=== PATIENT | male | born 1985 | race American Indian/Alaskan Native ===

== ENCOUNTER → 2017-11-04 | Outpatient (CLI) | payer OTHER ==
[~2017-11-04] MED LIST: DIAZ5 PO; DOXE10 PO; DOXE25 PO; HYDACE5 PO; IBUP800 PO; MEDICAL MARIJUANA; MIRT15 PO; MIRT30; OLAN10; OLAN10 PO; OLAN2.5 PO; OLAN5 PO; SERT25; ZIPR60 PO; [UNRECOGNIZED DRUG - REMARK]
[2017-11-04 14:18] LABS: Source, Urine Voided
[2017-11-04 16:49] LABS: Bilirubin, Urine Neg (Neg); Blood, Urine 1+ (Neg); Glucose Qualitative, Urine Neg (Neg); Ketones, Urine Neg (Neg); Leukocyte Esterase, Urine Neg (Neg); Nitrite, Urine Neg (Neg); Protein, Urine Neg (Neg); Urobilinogen, Urine NORM (Normal)
[2017-11-04 17:02] LABS: Appearance, Urine Clear (Clear); Color, Urine Yellow (P-Yellow)
[2017-11-04 17:03] LABS: Bacteria Few /hpf; Squamous Epithelial Cells Few /hpf (Few); White Blood Cells, Urine 0-2 /hpf (0-5)
== END | disposition home or self-care (01) ==
LOC: LAB 14:06
PROVIDERS: Nurse Practitioner Family
DX: R50.9 Fever, unspecified (principal)
CPT/HCPCS: 81001

== ENCOUNTER 2019-02-04 01:05 | Emergency (ER) | payer OTHER ==
[~2019-02-04] VITALS: Ht 175.3 cm; Wt 95.2 kg
== END 2019-02-04 01:24 | disposition home or self-care (01) ==
LOC: ER 01:05
DX: L98.9 Disorder of the skin and subcutaneous tissue, unspecified (principal); Z88.8 Allergy status to other drugs, medicaments and biological substances; Z79.899 Other long term (current) drug therapy; F25.0 Schizoaffective disorder, bipolar type
CPT/HCPCS: 36415; 80053; 80061; 83036; 85025; 99283; G0480

== ENCOUNTER 2019-11-27 12:13 | Emergency (ER) | payer OTHER ==
[~2019-11-27] VITALS: Ht 175.3 cm; Wt 95.2 kg
[2019-11-27] MEDS ORDERED: BENZATROPINE PO (12:34)
[2019-11-27] MEDS ORDERED: ALBU90OI INH (12:36)
[2019-11-27 13:02] LABS: Source, Urine Clean Catch
[2019-11-27 13:06] LABS: BASOPHILS ABSOLUTE AUTO 0.03 K/mm3 (0.00-0.23); BASOPHILS PERCENT AUTO 1 % (0-2); Bilirubin, Urine Neg (Neg); Blood, Urine 1+ (Neg); EOSINOPHILS ABSOLUTE AUTO 0.08 K/mm3 (0.00-0.68); EOSINOPHILS PERCENT AUTO 2 % (0-6); Glucose Qualitative, Urine Neg (Neg); Hemoglobin 17.1 g/dL (13.5-17.5); IMMATURE GRAN ABSOLUTE AUTO 0.01 K/mm3 (0.00-0.10); IMMATURE GRAN PERCENT AUTO 0 % (0-1); Ketones, Urine 3+ (Neg); LYMPHOCYTES ABSOLUTE AUTO 1.92 K/mm3 (0.84-5.20); LYMPHOCYTES PERCENT AUTO 37 % (21-46); Leukocyte Esterase, Urine 1+ (Neg); MONOCYTES ABSOLUTE AUTO 0.43 K/mm3 (0.16-1.47); MONOCYTES PERCENT AUTO 8 % (4-13); Mean Corpuscular HGB 31.9 pg (26.0-34.0); Mean Corpuscular HGB Conc 34.9 g/dL (31.5-36.5); Mean Corpuscular Volume 91 fL (80-100); Mean Platelet Volume 8.7 fL (9.1-12.4); NEUTROPHILS ABSOLUTE AUTO 2.73 K/mm3 (1.96-9.15); NEUTROPHILS PERCENT AUTO 53 % (41-73); Nitrite, Urine Neg (Neg); Platelet Count 282 K/mm3 (150-400); Protein, Urine 1+ (Neg); RDW Coefficient Variation 12.1 % (11.7-14.2); RDW Standard Deviation 41.2 fL (35.1-46.3); Red Blood Cell Count 5.36 M/mm3 (4.30-5.90); Urobilinogen, Urine 2+ (Normal)
[2019-11-27 13:14] LABS: Appearance, Urine Clear (Clear); Color, Urine Yellow (P-Yellow)
[2019-11-27 13:15] LABS: Bacteria Not Seen /hpf; Mucus Mod (0-Heavy); Red Blood Cells, Urine 0-2 /hpf (0-2); Squamous Epithelial Cells Rare /hpf (Few); White Blood Cells, Urine 0-2 /hpf (0-5)
[2019-11-27 13:28] LABS: Alanine Aminotransfer (ALT/SGP 29 U/L (12-78); Albumin, Blood 4.5 g/dL (3.4-5.0); Albumin/Globulin Ratio 1.3 (0.8-1.8); Alk Phos 71 U/L (50-136); Anion Gap 4 mmol/L (6-16); Aspartate Aminotrans (AST/SGOT 12 U/L (12-37); Blood Urea Nitrogen 9 mg/dL (8-24); Bun/Creatinine Ratio 10.8 (12.0-20.0); CO2, Blood 29 mmol/L (21-32); Calcium, Blood 8.9 mg/dL (8.5-10.1); Chloride, Blood 106 mmol/L (98-108); Creatinine, Blood 0.84 mg/dL (0.60-1.20); Globulin, Blood 3.4 g/dL (2.2-4.0); Glomerular Filtration Rate >60 (60-); Glucose, Blood 107 mg/dL (70-99); Potassium, Blood 4.1 mmol/L (3.5-5.5); Sodium, Blood 139 mmol/L (136-145); Total Protein, Blood 7.9 g/dL (6.4-8.2)
[2019-11-27] MEDS ORDERED: ONDA4ODT MM (14:04)
[2019-11-27] MEDS ORDERED: Bentyl20 MG PO (14:04)
== END 2019-11-27 14:45 | disposition home or self-care (01) ==
LOC: ER 12:13
PROVIDERS: Nurse Practitioner
DX: K52.9 Noninfective gastroenteritis and colitis, unspecified (principal); Z79.899 Other long term (current) drug therapy; Z79.51 Long term (current) use of inhaled steroids; F20.9 Schizophrenia, unspecified
CPT/HCPCS: 36415; 74176; 80053; 81001; 83690; 85025; 87086; 99284-25

== ENCOUNTER 2023-03-03 07:05 | Emergency (ER) | payer OTHER ==
[~2023-03-03] VITALS: Ht 175.3 cm; Wt 97.5 kg
[~2023-03-03 07:05] MED LIST changes: +ALBU90OI INH; +ALEVAZOL56.7 G1 TOP; +BENZATROPINE PO; +Bentyl20 MG PO; +ONDA4ODT MM
[2023-03-03 07:18] VITALS: BP 147/77
[2023-03-03] MEDS ORDERED: DOXE25 PO (07:26)
[2023-03-03 07:51] LABS: BASOPHILS ABSOLUTE AUTO 0.04 K/mm3 (0.00-0.23); BASOPHILS PERCENT AUTO 1 % (0-2); EOSINOPHILS ABSOLUTE AUTO 0.27 K/mm3 (0.00-0.68); EOSINOPHILS PERCENT AUTO 4 % (0-6); Hematocrit 46.8 % (37.0-53.0); Hemoglobin 16.2 g/dL (13.5-17.5); IMMATURE GRAN ABSOLUTE AUTO 0.04 K/mm3 (0.00-0.10); IMMATURE GRAN PERCENT AUTO 1 % (0-1); LYMPHOCYTES ABSOLUTE AUTO 2.46 K/mm3 (0.84-5.20); LYMPHOCYTES PERCENT AUTO 34 % (21-46); MONOCYTES ABSOLUTE AUTO 0.76 K/mm3 (0.16-1.47); MONOCYTES PERCENT AUTO 10 % (4-13); Mean Corpuscular HGB Conc 34.6 g/dL (31.5-36.5); Mean Corpuscular Volume 92 fL (80-100); Mean Platelet Volume 9.2 fL (9.1-12.4); NEUTROPHILS ABSOLUTE AUTO 3.77 K/mm3 (1.96-9.15); NEUTROPHILS PERCENT AUTO 51 % (41-73); Platelet Count 213 K/mm3 (150-400); RDW Coefficient Variation 13.2 % (11.7-14.2); RDW Standard Deviation 44.6 fL (35.1-46.3); Red Blood Cell Count 5.07 M/mm3 (4.30-5.90); White Blood Cell Count 7.34 K/mm3 (4.00-11.30)
[2023-03-03 08:28] LABS: Albumin, Blood 3.6 g/dL (3.4-5.0); Albumin/Globulin Ratio 1.1 (0.8-1.8); Bilirubin, Total 0.3 mg/dL (0.1-1.0); Bun/Creatinine Ratio 7.3 (12.0-20.0); C-Reactive Protein, High Sens. 14.3 mg/L (0.000-3.000); Calcium, Blood 8.5 mg/dL (8.5-10.1); Creatinine, Blood 0.69 mg/dL (0.60-1.20); Globulin, Blood 3.2 g/dL (2.2-4.0); Potassium, Blood 3.7 mmol/L (3.5-5.5); Total Protein, Blood 6.8 g/dL (6.4-8.2)
[2023-03-03] MEDS ORDERED: CEPH500 PO (08:50)
== END 2023-03-03 08:58 | disposition home or self-care (01) ==
LOC: ER 07:05
PROVIDERS: Emergency Medicine
DX: S90.31XA Contusion of right foot, initial encounter (principal); L03.115 Cellulitis of right lower limb; F17.210 Nicotine dependence, cigarettes, uncomplicated; W19.XXXA Unspecified fall, initial encounter
CPT/HCPCS: 73610; 73630; 80053; 85025; 85651; 86141; 99283-25; A9270

== ENCOUNTER 2023-06-19 13:52 | Emergency (ER) | payer OTHER ==
[~2023-06-19] VITALS: Ht 175.3 cm; Wt 95.2 kg
[~2023-06-19 13:52] MED LIST changes: +CEPH500 PO
[2023-06-19 14:32] VITALS: BP 129/85
[2023-06-19 15:18] LABS: BASOPHILS ABSOLUTE AUTO 0.03 K/mm3 (0.00-0.23); BASOPHILS PERCENT AUTO 0 % (0-2); EOSINOPHILS ABSOLUTE AUTO 0.02 K/mm3 (0.00-0.68); EOSINOPHILS PERCENT AUTO 0 % (0-6); Hematocrit 44.9 % (37.0-53.0); Hemoglobin 16.1 g/dL (13.5-17.5); IMMATURE GRAN ABSOLUTE AUTO 0.05 K/mm3 (0.00-0.10); IMMATURE GRAN PERCENT AUTO 0 % (0-1); LYMPHOCYTES ABSOLUTE AUTO 1.62 K/mm3 (0.84-5.20); LYMPHOCYTES PERCENT AUTO 11 % (21-46); MONOCYTES ABSOLUTE AUTO 1.86 K/mm3 (0.16-1.47); MONOCYTES PERCENT AUTO 13 % (4-13); Mean Corpuscular HGB 31.9 pg (26.0-34.0); Mean Corpuscular HGB Conc 35.9 g/dL (31.5-36.5); Mean Corpuscular Volume 89 fL (80-100); Mean Platelet Volume 8.6 fL (9.1-12.4); NEUTROPHILS ABSOLUTE AUTO 10.77 K/mm3 (1.96-9.15); NEUTROPHILS PERCENT AUTO 75 % (41-73); Platelet Count 324 K/mm3 (150-400); RDW Coefficient Variation 12.2 % (11.7-14.2); RDW Standard Deviation 40.3 fL (35.1-46.3); Red Blood Cell Count 5.05 M/mm3 (4.30-5.90); White Blood Cell Count 14.35 K/mm3 (4.00-11.30)
[2023-06-19 15:40] LABS: Albumin, Blood 3.7 g/dL (3.4-5.0); Albumin/Globulin Ratio 0.8 (0.8-1.8); Bilirubin, Total 0.9 mg/dL (0.1-1.0); Bun/Creatinine Ratio 10.6 (12.0-20.0); Calcium, Blood 9.2 mg/dL (8.5-10.1); Creatinine, Blood 0.66 mg/dL (0.60-1.20); Globulin, Blood 4.5 g/dL (2.2-4.0); Potassium, Blood 3.9 mmol/L (3.5-5.5); Total Protein, Blood 8.2 g/dL (6.4-8.2)
== END 2023-06-19 16:28 | disposition home or self-care (01) ==
LOC: ER 13:52
PROVIDERS: Physician Assistant
DX: K59.00 Constipation, unspecified (principal)
CPT/HCPCS: 80053; 83690; 85025; 99283; A9270

== ENCOUNTER 2025-06-30 15:31 | Emergency (ER) | payer OTHER ==
[~2025-06-30] VITALS: Ht 175.3 cm; Wt 90.7 kg
[2025-06-30 15:44] VITALS: BP 172/75
== END 2025-06-30 16:00 | disposition home or self-care (01) ==
LOC: ER 15:31
DX: S40.261A Insect bite (nonvenomous) of right shoulder, initial encounter (principal); Z79.899 Other long term (current) drug therapy; F17.210 Nicotine dependence, cigarettes, uncomplicated; Z88.1 Allergy status to other antibiotic agents; W57.XXXA Bitten or stung by nonvenomous insect and other nonvenomous arthropods, initial encounter
CPT/HCPCS: 99282; A9270